=== PATIENT | female | born 1995 | race Native Hawaiian/Other Pacific Islander ===

== ENCOUNTER 2021-07-22 16:37 | Emergency (ER) | payer OTHER ==
[~2021-07-22] VITALS: Ht 162.6 cm; Wt 113.4 kg
[2021-07-22 16:45] VITALS: TEMP 99
[2021-07-22 17:34] LABS: PLATELET COUNT 266 K/uL (152-353)
[2021-07-22 17:37] LABS: POTASSIUM 3.2 mmol/L (3.6-5.2)
[2021-07-22 18:30] VITALS: BP 142/88
== END 2021-07-22 18:34 | disposition home or self-care (01) ==
LOC: ED 16:37
PROVIDERS: Emergency Medicine
DX: Z33.1 Pregnant state, incidental (principal); K21.9 Gastro-esophageal reflux disease without esophagitis
CPT/HCPCS: 80053; 81000; 81025; 84702; 85027; 99283